=== PATIENT | male | born 1990 | race Caucasian/White ===

== ENCOUNTER 2019-04-28 21:59 | Emergency (ER) | payer SELFPAY ==
[~2019-04-28] VITALS: Ht 175.3 cm; Wt 72.1 kg
[2019-04-28 22:27] VITALS: BP 108/75; Ht 175.3 cm; Wt 72.1 kg
== END 2019-04-29 00:37 | disposition left against medical advice (07) ==
LOC: ED 21:59
DX: Z53.21 Procedure and treatment not carried out due to patient leaving prior to being seen by health care provider (principal)